=== PATIENT | male | born 1980 | race African-American/Black ===

== ENCOUNTER 2017-06-01 16:39 | Emergency (ER) | payer OTHER ==
[~2017-06-01] VITALS: Ht 182.9 cm; Wt 97.0 kg
[2017-06-01 16:53] VITALS: BP 132/70
== END 2017-06-01 17:15 | disposition left against medical advice (07) ==
LOC: ER 17:13
DX: Z53.21 Procedure and treatment not carried out due to patient leaving prior to being seen by health care provider (principal)